=== PATIENT | female | born 1935 | race Two or more races ===

== ENCOUNTER 2025-08-25 13:17 | Emergency (ER) | payer OTHER, MEDICAID ==
[~2025-08-25] VITALS: Ht 170.2 cm; Wt 68.0 kg
[2025-08-25 13:58] LABS: Hematocrit 43.8 % (36.0-46.0); Hemoglobin 14.7 g/dL (12.2-16.2); Mean Corpuscular Hemoglobin 31.9 pg (28.0-32.0); Mean Corpuscular Volume 95.0 fL (80.0-100.0); Nucleated Red Blood Cells % 0.1 %
[2025-08-25 14:03] LABS: Chloride 106 mmol/L (98-107); Potassium 4.2 mmol/L (3.5-5.1); Sodium 139 mmol/L (136-145)
[2025-08-25 14:04] LABS: Anion Gap 11 (5-15); Carbon Dioxide 22 mmol/L (20-31)
[2025-08-25 14:05] LABS: Calcium 8.8 mg/dL (8.7-10.4)
[2025-08-25 14:10] VITALS: PULSE 85; RESP 13; O2SAT 96
[2025-08-25 14:10] LABS: BUN/Creatinine Ratio 10.3 (10.0-20.0); Blood Urea Nitrogen 12 mg/dL (9-23)
[2025-08-25 14:28] LABS: Glucose 213 mg/dL (74-106)
--- NOTE | 2025-08-25 14:34 | DVH ---
CHEST RADIOGRAPH Indication: near syncope Technique: Single frontal view of the chest was obtained Comparison: None FINDINGS: Lines and Tubes: None Lungs: No focal consolidation. Pleura: No effusion. No pneumothorax. Cardiomediastinal contours: Cardiac size upper limits of normal. Bones: No acute osseous abnormality. IMPRESSION: 1. Cardiac size upper limits of normal. 2. No infiltrates or effusions..
--- NOTE | 2025-08-25 16:06 | ED.PDOC ---
History of Present Illness HPI Comments 89-year-old female is brought in by ambulance from [facility] urgent care facility for chief complaint of lightheadedness whenever standing x1 week. Significant history for AFib, CKD III, and ileostomy. Patient was at urgent care facility, initially, being evaluated for her chief complaint. No reported recent illness, sick contacts, injuries, or permanent events or history endorsed. She denies on having any chest pain, shortness breath, or further acute symptoms. On scene, EMS personnel comments on patient being found in AFib RVR and hypertensive at 170 systolic. Initial blood glucose of 77 (given D10 EN route, with blood glucose rechecked at 167 upon arrival to ED). Chief Complaint: Dizziness Time Seen by MD: 13:20 Reviewed Notes: Nurses Notes, [employer] Notes, Allergies Allergies: Coded Allergies: Penicillins (Verified Allergy, Unknown, 08/25/25) Information Source: Patient, Emergency Med Personnel Mode of Arrival: EMS Severity: Moderate Timing: Hours Duration: Since onset Prehospital treatment: 12 Lead EKG, Accucheck, As[employer] Past Medical History PAST MEDICAL HISTORY: AFIB, CKF (States III) Surgical History (Other): Ileostomy G[employer] History: Denies all GARBAGE P[employer] MAN Hx Social History Smoker: Non-Smoker Alcohol: Denies ETOH Use Drugs: Denies Drug Use Lives In: Home All Other Systems: Reviewed and Negative (Comprehensive review of systems are negative unless otherwise stated in HPI) Physical Exam General Appearance: No Apparent Distress, Normal HEENT: Normal ENT Inspection, Pharynx Normal, TMs Normal Neck: Full Range of Motion, Non-Tender, Normal, Normal Inspection Respiratory: Chest Non-Tender, Lungs Clear, No Accessory Muscle Use, No Respiratory Distress, Normal Breath Sounds Cardiovascular: Irregular (AFib), No Edema, No JVD, No Murmur, No Gallop, Normal Peripheral Pulses Breast Exam: Deferred Gastrointestinal: No Organomegaly, Non Tender, No Pulsatile Mass, Normal Bowel Sounds, Soft, Other (Indwelling ileostomy) Genitalia: Deferred Pelvic: Deferred Rectal: Deferred Extremities: No calf tenderness, Normal capillary refill, Normal inspection, Normal range of motion, Non-tender, No pedal edema Musculoskeletal : Apperance: Normal Neurologic: Alert, compliance representative II-XII nml as Tested, No Motor Deficits, Normal Affect, Normal Mood, No Sensory Deficits Cerebellar Function: Normal Reflexes: Normal Skin: Dry, Normal Color, Warm Lymphatic: No Adenopathy Was a procedure done? Was a procedure done?: No EKG EKG : Pulse Rate (adult): 88 [place]: Normal Cardiac Rhythm: Afib Block: None Hypertrophy: None ST: Normal Differential Dx Considerations may include: AFib, arrhythmia, dehydration, electrolyte imbalance, UTI, PA, PE, ACS, among others X-Ray, Labs, Meds, VS Vital Signs Date Time Temp Pulse Resp B/P (MAP) Pulse Ox O2 Delivery O2 Flow Rate FiO2 08/25/25 16:06 88 08/25/25 16:00 99.1 92 15 147/89 (108) 96 99.1 08/25/25 15:37 97.9 92 16 171/103 97 97.9 08/25/25 14:10 99.2 85 13 161/94 (116) 96 99.2 08/25/25 14:10 85 13 96 Room Air* 0 21 08/25/25 13:37 88 Lab Test 08/25/25 16:18 08/25/25 14:29 08/25/25 13:37 Range/Units Troponin I High Sensitivity 27 22 26 </=34 ng/L White Blood Count 5.3 4.4-10.8 10^3/uL Red Blood Count 4.62 4.0-5.20 10^6/uL Hemoglobin 14.7 12.2-16.2 g/dL Hematocrit 43.8 36.0-46.0 % Mean Corpuscular Volume 95.0 80.0-100.0 fL Mean Corpuscular Hemoglobin 31.9 28.0-32.0 pg Mean Corpuscular Hemoglobin Concent 33.6 32.0-36.0 g/dL Red Cell Distribution Width 15.5 H 11.8-14.3 % Platelet Count 197 140-450 10^3/uL Mean Platelet Volume 7.5 6.9-10.8 fL Neutrophils (%) (Auto) 72.1 37.0-80.0 % Lymphocytes (%) (Auto) 17.1 10.0-50.0 % Monocytes (%) (Auto) 8.3 0.0-12.0 % Eosinophils (%) (Auto) 1.8 0.0-7.0 % Basophils (%) (Auto) 0.7 0.0-2.0 % Neutrophils # (Auto) 3.9 1.6-8.6 10 ^3/uL Lymphocytes # (Auto) 0.9 0.4-5.4 10 ^3/uL Monocytes # (Auto) 0.4 0-1.3 10 ^3/uL Eosinophils # (Auto) 0.1 0-0.8 10 ^3/uL Basophils # (Auto) 0 0-0.2 10 ^3/uL Nucleated Red Blood Cells 0.1 % Sodium Level 139 136-145 mmol/L Potassium Level 4.2 3.5-5.1 mmol/L Chloride Level 106 98-107 mmol/L Carbon Dioxide Level 22 20-31 mmol/L Anion Gap 11 5-15 Blood Urea Nitrogen 12 9-23 mg/dL Creatinine 1.17 H 0.550-1.02 mg/dL Glomerular Filtration Rate Calc 45 >90 mL/min BUN/Creatinine Ratio 10.3 10.0-20.0 Serum Glucose 213 H 74-106 mg/dL Calcium Level 8.8 8.7-10.4 mg/dL B-Type Natriuretic Peptide 299.34 0-100 pg/mL [place] [id number] Ph: [phone] DIAGNOSTIC IMAGING Diagnostic Imaging Report : [id number] Signed PATIENT: NATANAEL MEZA ACCT: [id number] UNIT: [id number] : 1935 LOC: ER ROOM / BED: / AGE / SEX: 89 / F ADM STATUS: REG ER SERVICE 1326 ORDERING PHYSICIAN: LOUIS DAWSON MD PROCEDURE(s): CXRP - CHEST PORTABLE REASON: near syncope ORDER NUMBER(s): [id number], ACCESSION NUMBER(s): [id number] CHEST RADIOGRAPH Indication: near syncope Technique: Single frontal view of the chest was obtained Comparison: None FINDINGS: Lines and Tubes: None Lungs: No focal consolidation. Pleura: No effusion. No pneumothorax. Cardiomediastinal contours: Cardiac size upper limits of normal. Bones: No acute osseous abnormality. IMPRESSION: 1. Cardiac size upper limits of normal. 2. No infiltrates or effusions.. ATED BY: BG MOORE Jr. DO DICTATED DATE/TIME: 08/25/251430 SIGNED BY: BG MOORE Jr., SIGNED DATE/TIME: 08/25/251430 CC: Time of 1ST Reevaluation: 13:50 Reevaluation 1ST: Unchanged Patient Education/Counseling: Diagnosis, Treatment Family Education/Counseling: No Family Present Additional Information Additional historians: EMS personnel Previous medical visits reviewed: None Additional imaging and studies ordered and reviewed: Chest x-ray Labs ordered and reviewed: Troponin, UA, BNP, CBC, BMP SEPSIS Sepsis Screen Physician Orders Chest Portable (08/25/25 13:26) Urinalysis (08/25/25 13:26) Electrocardigram (08/25/25 13:26) Electrocardigram (08/25/25 14:26) Electrocardigram (08/25/25 16:26) Head Without Contrast (08/25/25 17:42) Vital Signs Date Time Temp Pulse Resp B/P (MAP) Pulse Ox O2 Delivery O2 Flow Rate FiO2 08/25/25 16:06 88 08/25/25 16:00 99.1 92 15 147/89 (108) 96 99.1 08/25/25 15:37 97.9 92 16 171/103 97 97.9 08/25/25 14:10 99.2 85 13 161/94 (116) 96 99.2 08/25/25 14:10 85 13 96 Room Air* 0 21 08/25/25 13:37 88 Laboratory Tests Test 08/25/25 13:37 White Blood Count 5.3 10^3/uL (4.4-10.8) Departure 1 Departure Time of Disposition: 20:28 ([place] Authorization: [id number]'s workup is benign however patient is still feeling like she is going to pass out. We will transfer patient to [place]) Impression: Primary Impression: Near syncope Additional Impression: Atrial fibrillation Disposition: 02 SHORT TERM HOSPITAL Admit to: Tele Condition: Serious Critical Care Note Critical Care Time?: No Stability Stability form required: No Heart Score Heart Score: Heart Score Response (Comments) Value History N/A 0 EKG N/A 0 Age N/A 0 Risk Factors N/A 0 Troponin N/A 0 Total 0 I personally scribed for LOUIS DAWSON MD ([email or web address]) on 08/25/25 at 16:06. Electronically submitted by Yousif Bruce [email or web address]). LOUIS DAWSON MD Aug 25, 2025 16:06
--- NOTE | 2025-08-25 18:54 | DVH ---
EXAM: CT HEAD WITHOUT CONTRAST INDICATION: syncope TECHNIQUE: CT images of the head were obtained without administration of IV contrast. CT scans at this facility use dose modulation, iterative reconstruction, and/or weight based dosing when appropriate to reduce radiation dose to as low as reasonably achievable. COMPARISON: None FINDINGS: PARENCHYMA: No acute hemorrhage. There is no mass effect, midline shift, or herniation. There is preservation of the chappell white differentiation. Mild scattered hypoattenuation along the periventricular, centrum semiovale, and deep white matter tracts, which are nonspecific however statistically most likely represent chronic microvascular ischemic change. VENTRICLES: No hydrocephalus. EXTRA-AXIAL SPACES: No extra-axial fluid collections. OTHER: The bony structures are intact. Visualized portions of the paranasal sinuses and mastoid air cells are clear. Degenerative change of bilateral temporomandibular joints. IMPRESSION: 1. No CT evidence of an acute intracranial abnormality.
[2025-08-25 19:35] VITALS: PULSE 85; RESP 17; O2SAT 97
[2025-08-26 00:45] VITALS: BP 162/94; PULSE 76; RESP 15; TEMP 97.7; O2SAT 94
--- NOTE | 2025-08-26 06:35 | ECG ---
[facility] Test Date: 2025-08-25 Test Time: 13:37:23 Pat Name: NATANAEL MEZA Department: [facility] ED Patient ID: [facility]-[id number] Room: Gender: F Case Worker: zak : 1935 Requested By: LOUIS DAWSON Order Number: [id number] Reading MD: Ellis Fabian Measurements Intervals [place] Rate: 88 P: 0 CT: 0 QRS: -36 QRSD: 92 T: -3 QT: 389 QTc: 471 Interpretive Statements Atrial fibrillation Ventricular premature complex Left axis deviation RSR' in V1 or V2, probably normal variant Borderline abnrm T, anterolateral leads Electronically Signed On 08-27-2025 10:57:51 PST by Ellis Fabian Please click the below link to view image of tracing.
== END 2025-08-26 01:02 | disposition short-term general hospital (02) ==
LOC: ER 13:17 → EDBD 13:17 → ER 08-26 01:02
DX: R55 Syncope and collapse (principal); I48.91 Unspecified atrial fibrillation; N18.30 Chronic kidney disease, stage 3 unspecified; Z88.0 Allergy status to penicillin
CPT/HCPCS: 36415; 70450; 71045; 80048; 83880; 84484; 85025; 93005